=== PATIENT | female | born 1985 | race Caucasian/White ===

== ENCOUNTER 2019-10-17 12:51 | Inpatient (IN) | payer OTHER ==
[~2019-10-17] VITALS: Ht 175.3 cm; Wt 81.0 kg
--- NOTE | 2019-10-17 13:30 | NUR ---
[facility] Orientated patient to room and call light. Patient A&Ox4, reporting nausea and pain in abdomen. VLAD Scott notified. IV CDI. VSS. Assessment charted. No further needs expressed from patient. Call light within reach
[2019-10-17] MEDS ORDERED: CITANEST PLAIN1.8 ML (15:14)
[2019-10-17] MEDS ORDERED: PROMETHAZINE12.5 M5 PO (15:15)
[2019-10-17 15:44] VITALS: BP 142/77; PULSE 80; TEMP 97.9
[2019-10-17 15:51] VITALS: BP 130/64; PULSE 100; TEMP 99.3
[2019-10-17] MEDS ORDERED: ADDERALL XR30 MG PO (16:09)
[2019-10-17] MEDS ORDERED: PRILOSEC10 MG PO (16:11)
[2019-10-17 17:15] LABS: BASO # 0.1 (0.0-0.2); BASO % 0.5 % (0.0-2.0); GRAN # 14.7 (1.4-6.5); GRAN % 87.6 % (42.2-75.2); HEMOGLOBIN 11.5 g/dl (12.5-16.0); LYMPH # 1.3 (1.2-3.4); LYMPH % 7.5 % (20.0-51.0); MEAN CELL VOLUME 88 fl (80.0-100.0); MEAN CORPUSCULAR HEMOGLOBIN 29 pg (27.0-31.0); MEAN CORPUSCULAR HGB CONC 33 g/dl (33.0-37.0); MEAN PLATELET VOLUME 10.7 fl (7.4-10.4); MONO # 0.6 (0.1-0.6); MONO % 3.7 % (1.7-9.3); PLATELET COUNT 408 K/mm3 (130-400); REDCELL DISTRIBUTION WIDTH-CV 12.7 % (11.5-14.5)
[2019-10-17 17:28] LABS: ALANINE AMINOTRANSFERASE 10 U/L (9-52); ALBUMIN 3.1 gm/dL (3.5-5.0); ALKALINE PHOSPHATASE 94 U/L (50-136); ANION GAP 14 mmol/L (7-16); AST,SGOT 20 U/L (15-37); BILIRUBIN,TOTAL 0.6 mg/dL (0.0-1.0); CALCIUM 7.9 mg/dL (8.4-10.2); CARBON DIOXIDE 16 mmol/L (22-30); CHLORIDE 105 mmol/L (98-107); CREATININE, serum 0.64 (0.52-1.25); GLUCOSE 63 mg/dL (74-106); POTASSIUM 3.7 mmol/L (3.4-5.0); SODIUM 135 mmol/L (137-145); TOTAL PROTEIN 6.5 gm/dL (6.4-8.2)
[2019-10-17 17:30] LABS: BLOOD UREA NITROGEN < 2 mg/dL (7-17)
--- NOTE | 2019-10-17 18:17 | NUR ---
Patient resting in bed. VSS. IV CDI, fluids infusing. Denies pain and not reporting nausea. Patient stating that she just wants to rest. No further needs expressed from patient. Call light within reach
[2019-10-18] VITALS (7 sets, daily range): BP systolic 123–132; BP diastolic 64–80; PULSE 52–86; TEMP 97.6–98.7
--- NOTE | 2019-10-18 02:02 | NUR ---
Patient has rested well throughout the night. Patient complained of pain, and was noted to have quickened breathing and small amount of moaning during painful episode. Patient also requested phenergan d/t nausea. PRN Dilaudid and Phenergan given and this was effective. Patient has been resting since then. Denies any further needs. Will continue to monitor.
--- NOTE | 2019-10-18 09:33 | NUR ---
First visit from the fishing floats assembler. No needs right now.
[2019-10-18 09:42] LABS: HEMOGLOBIN 10.4 g/dl (12.5-16.0); MEAN CELL VOLUME 88 fl (80.0-100.0); MEAN CORPUSCULAR HEMOGLOBIN 29 pg (27.0-31.0); MEAN CORPUSCULAR HGB CONC 33 g/dl (33.0-37.0); MEAN PLATELET VOLUME 10.5 fl (7.4-10.4); PLATELET COUNT 375 K/mm3 (130-400); RED BLOOD COUNT 3.61 M/mm3 (4.10-5.30); REDCELL DISTRIBUTION WIDTH-CV 12.7 % (11.5-14.5)
[2019-10-18 09:43] LABS: HEMATOCRIT 31.8 % (37.0-47.0)
--- NOTE | 2019-10-18 09:50 | NUR ---
machine welder met with pt to discuss discharge planning. Pt lives in [place] with her , 2 step-children, and their 5mo child. Pt's parents are also staying with them for a couple of months while their new home is built. Pt reports that her will be deploying soon so they will be staying with her for part of that. Pt does not use any DME at home and is independent in her ADLs. Pt's PCM is Dr. Trujillo from [facility]. Gets her prescriptions at the [facility]. Pt does not have an Advanced Directive at this time but was interested in reviewing the paperwork. Pt plans to return home with family at discharge. She denies any current quesitons or concerns. SW to follow for continued discharge planning.
[2019-10-18 09:55] LABS: CALCIUM 7.6 mg/dL (8.4-10.2); CREATININE, serum 0.6 (0.52-1.25); POTASSIUM 4.1 mmol/L (3.4-5.0)
[2019-10-18 10:24] LABS: BAND 37 % (0-10); LYMPHOCYTE 10 % (20.0-51.0); METAMYELOCYTE 1 % (0-0); MYELOCYTE 1 % (0-0); NEUTROPHILS 51 % (42.0-75.2); PLATELET ESTIMATE NORMAL (NORMAL)
--- NOTE | 2019-10-18 11:30 | NUR ---
Patient stated everytime she has bowel movement that her pain jumps up and her nausea comes back. She is tolerating clear liquids well. She has been sleeping most the morning. No other changes at this time. Call light within reach.
--- NOTE | 2019-10-18 19:00 | NUR ---
Patient has been getting dilauded every two hours or so. She got norco once but stated it is not working well enough. Nausea has been better this evening. GI was here to see her. Patient wanted to go back to a clear liquid diet, she stated the bland diet is causing her pain to increase. No other changes at this time. Call light within reach.
[2019-10-19] VITALS (8 sets, daily range): BP systolic 119–150; BP diastolic 69–87; PULSE 68–108; TEMP 97.8–98.3
--- NOTE | 2019-10-19 02:43 | NUR ---
Upon arrival to shift, patient states she has had minimal pain relief ever since she attempted to eat a bland diet. After PRN dilaudid was unsuccessful, PRN Morphine was attempted and this was unsuccessful as well. Dr. Quevedo notified and ordered 10mg Bentyl IM x1 dose. This was administered and patient called and stated this wasn't effective. PRN Dilaudid administered. Patient requested something to help her sleep. Dr. Quevedo notified and ordered 15mg Remeron PO once. Patient was able to get a few hours of sleep, then called and asked for more pain medication. She stated she was woke up by the urge to have a bowel movement. Stated she has a loose stool with some blood in it. Patient is resting at this time. Will continue to monitor and attempt pain relief.
[2019-10-19 07:00] LABS: MEAN CELL VOLUME 89 fl (80.0-100.0); MEAN CORPUSCULAR HGB CONC 32 g/dl (33.0-37.0); MEAN PLATELET VOLUME 10.8 fl (7.4-10.4); PLATELET COUNT 301 K/mm3 (130-400); RED BLOOD COUNT 3.06 M/mm3 (4.10-5.30); REDCELL DISTRIBUTION WIDTH-CV 13.1 % (11.5-14.5)
[2019-10-19 07:04] LABS: CREATININE, serum 0.53 (0.52-1.25); POTASSIUM 4.1 mmol/L (3.4-5.0)
[2019-10-19 07:06] LABS: HEMATOCRIT 27.1 % (37.0-47.0); HEMOGLOBIN 8.7 g/dl (12.5-16.0); MEAN CORPUSCULAR HEMOGLOBIN 28 pg (27.0-31.0)
[2019-10-19 08:20] LABS: BAND 45 % (0-10); LYMPHOCYTE 9 % (20.0-51.0); NEUTROPHILS 38 % (42.0-75.2); PLATELET ESTIMATE NORMAL (NORMAL)
[2019-10-19 08:22] LABS: OVALOCYTES 2+; SCHISTOCYTES 2+
--- NOTE | 2019-10-19 12:30 | NUR ---
Patient is not feeling well today. Her pain and nausea has been worse today. She stated the pain is making it worse. Dr Lee came to see patient, he ordered remicade to be given inpatient tomorrow. Patient has never had this medication but stated she is aware how it works. No other changes at this time. Call light within reach.
--- NOTE | 2019-10-19 18:00 | NUR ---
Patient has been on the dilauded BROILER CHEF OR COOK since about 1529. she is doing better with it. Her pain is well controlled. She continues to have nausea. No other changes at this time. Call light within reach.
[2019-10-20] VITALS (11 sets, daily range): BP systolic 116–134; BP diastolic 63–78; PULSE 61–82; TEMP 97.5–98.5
--- NOTE | 2019-10-20 01:26 | NUR ---
patient doing well tonight. states pain is well controlled with TUBE DISPATCHER dilaudid. pain and nausea increases after bowel movements per patient. has taken prn phernergan twice for nausea. tolerating her clear liquid diet per patient. no further needs at this time. will continue to monitor.
[2019-10-20 07:13] LABS: BASO % 0.2 % (0.0-2.0); GRAN # 7.6 (1.4-6.5); GRAN % 71.1 % (42.2-75.2); LYMPH # 1.6 (1.2-3.4); MEAN CELL VOLUME 88 fl (80.0-100.0); MEAN CORPUSCULAR HGB CONC 33 g/dl (33.0-37.0); MEAN PLATELET VOLUME 11.1 fl (7.4-10.4); MONO # 1.2 (0.1-0.6); MONO % 11.1 % (1.7-9.3); PLATELET COUNT 272 K/mm3 (130-400); RED BLOOD COUNT 3.06 M/mm3 (4.10-5.30); REDCELL DISTRIBUTION WIDTH-CV 13.4 % (11.5-14.5)
[2019-10-20 07:15] LABS: C-REACTIVE PROTEIN 1.9 mg/dL (0.0-0.9); CALCIUM 7.4 mg/dL (8.4-10.2); CREATININE, serum 0.58 (0.52-1.25); POTASSIUM 3.8 mmol/L (3.4-5.0)
[2019-10-20 07:18] LABS: HEMOGLOBIN 8.8 g/dl (12.5-16.0); MEAN CORPUSCULAR HEMOGLOBIN 29 pg (27.0-31.0)
--- NOTE | 2019-10-20 08:00 | NUR ---
Patient in bed resting. Alert and oriented x 3. Assessment complete. ENDOSCOPY TECHNICAN infusing per orders to SUGAR PICC. PICC flushes without difficulty on both ports. Denies further needs at this time.
--- NOTE | 2019-10-20 10:00 | NUR ---
Patient requests phenergan, states it helps with stomach discomfort. Medication given per orders. Denies further needs at this time.
--- NOTE | 2019-10-20 13:09 | NUR ---
Patient requests benadryl for itching, given per orders.
--- NOTE | 2019-10-20 15:00 | NUR ---
Patient states benadryl has not helped with itching. Contacted Dr. Zendejas, one time order for benadryl given. Will continue to monitor.
--- NOTE | 2019-10-20 18:30 | NUR ---
Patient has done well throughout the day. States she is trying to decrease use of SCHOOL SOCIAL WORKER today. Has requested phenergan for nausea throughout the day, medication given per orders. Showered this afternoon, linens changed. Denies further needs at this time. Will report off to shift production supervisor.
--- NOTE | 2019-10-20 21:32 | NUR ---
patient doing well tonight. had episode of increased pain rated 9/10 when WEB MARKETING MANAGER had finished. WEB MARKETING MANAGER refilled. patient states there is no other needs. denies nausea at this time. complaints of increased itching. patient requested benadryl be switched to IV, Dr. whiteside called, started on 12.5 mg IV benadryl q 4 hrs prn per doctors orders. no further needs at this time. will continue to monitor.
[2019-10-21] VITALS (9 sets, daily range): BP systolic 124–149; BP diastolic 73–95; PULSE 68–92; TEMP 97.6–99
[2019-10-21 06:21] LABS: MEAN CELL VOLUME 91 fl (80.0-100.0); MEAN CORPUSCULAR HGB CONC 32 g/dl (33.0-37.0); MEAN PLATELET VOLUME 10.7 fl (7.4-10.4); PLATELET COUNT 208 K/mm3 (130-400); RED BLOOD COUNT 2.89 M/mm3 (4.10-5.30); REDCELL DISTRIBUTION WIDTH-CV 13.5 % (11.5-14.5)
[2019-10-21 06:33] LABS: HEMATOCRIT 26.2 % (37.0-47.0); HEMOGLOBIN 8.4 g/dl (12.5-16.0); MEAN CORPUSCULAR HEMOGLOBIN 29 pg (27.0-31.0)
[2019-10-21 06:36] LABS: C-REACTIVE PROTEIN 1.6 mg/dL (0.0-0.9); CALCIUM 6.8 mg/dL (8.4-10.2); CREATININE, serum 0.49 (0.52-1.25); POTASSIUM 3.4 mmol/L (3.4-5.0)
[2019-10-21 07:04] LABS: BAND 25 % (0-10); EOSINOPHIL 1 % (0-4); LYMPHOCYTE 30 % (20.0-51.0); METAMYELOCYTE 3 % (0-0); NEUTROPHILS 34 % (42.0-75.2); NUCLEATED RED BLOOD CELL 1 (0-6)
[2019-10-21 07:05] LABS: PLATELET ESTIMATE NORMAL (NORMAL)
[2019-10-21 13:22] LABS: HEPATITIS B CORE AB,TOTAL Negative (()); HEPATITIS B SURFACE ANTIBODY 25.2 (()); HEPATITIS B SURFACE ANTIGEN Negative (Negative); HEPATITIS C VIRUS ANTIBODY Negative (Negative)
--- NOTE | 2019-10-21 18:00 | NUR ---
Patient has been doing well today. Her PUBLIC SERVICES LIBRARIAN has been discontinued, she is getting IV dilauded q2 hours PRN. She does call every time it is due. She continues to have the itching and nausea as well. Benadryl and phenergan given for that. Her family has been by to visit her. Her mother brought her food and it was placed in the fridge. They brought her food since she is not able to order the food she wants from the kitchen and most of the food upsets her stomach or causes her pain. No other changes at this time. Call light within reach
--- NOTE | 2019-10-22 01:27 | NUR ---
PATIENT DOING WELL TONIGHT. HAS BEEN TAKING DILAUDID FOR PAIN Q 2 HOURS. STATES THIS IS NOT CONTROLLING HER PAIN BETTER THAN THE CORPORATE LIBRARIAN. HAS HAD SEVERAL BLOODY BOWEL MOVEMENTS THROUGHOUT THE NIGHT. IV BENADRYL GIVEN Q4 HOURS FOR ITCHING. IV PHENERGAN GIVEN Q4 HOURS FOR NAUSEA. PATIENT HAS SLEPT SOME THROUGHOUT NIGHT. PICC TO [facility] HAS GOOD BLOOD RETURN. NO FURTHER NEEDS AT THIS TIME. WILL CONTINUE TO MONITOR.
[2019-10-22 04:40] VITALS: BP 146/91; PULSE 67; TEMP 98.6
[2019-10-22 06:28] LABS: MEAN CELL VOLUME 90 fl (80.0-100.0); MEAN CORPUSCULAR HGB CONC 32 g/dl (33.0-37.0); MEAN PLATELET VOLUME 10.8 fl (7.4-10.4); PLATELET COUNT 243 K/mm3 (130-400); REDCELL DISTRIBUTION WIDTH-CV 13.3 % (11.5-14.5)
[2019-10-22 06:29] LABS: HEMATOCRIT 26.9 % (37.0-47.0); HEMOGLOBIN 8.7 g/dl (12.5-16.0); MEAN CORPUSCULAR HEMOGLOBIN 29 pg (27.0-31.0)
[2019-10-22 06:31] LABS: ALBUMIN 2.3 gm/dL (3.5-5.0); BILIRUBIN,TOTAL 0.1 mg/dL (0.0-1.0); C-REACTIVE PROTEIN 1.1 mg/dL (0.0-0.9); CALCIUM 6.6 mg/dL (8.4-10.2); CREATININE, serum 0.55 (0.52-1.25); TOTAL PROTEIN 4.8 gm/dL (6.4-8.2)
[2019-10-22 07:30] LABS: BAND 10 % (0-10); EOSINOPHIL 5 % (0-4); LYMPHOCYTE 33 % (20.0-51.0); METAMYELOCYTE 1 % (0-0); MYELOCYTE 2 % (0-0); NEUTROPHILS 45 % (42.0-75.2); PLATELET ESTIMATE NORMAL (NORMAL)
--- NOTE | 2019-10-22 07:52 | NUR ---
Patient continues to have a lot pain with bowel movements. Checked her stools this morning, she had a small red liquid stool. She continues to rate her pain at 8-10 on a 0-10 scale. Denies nausea at this time. We are trying to switch her to oral pain medications, roxicodone given for pain this morning. No other changes at this time. Call light within reach.
[2019-10-22 08:16] VITALS: BP 131/68; PULSE 72; TEMP 98.3
[2019-10-22 11:16] VITALS: BP 141/82; PULSE 82; TEMP 99
[2019-10-22 15:37] VITALS: BP 139/83; PULSE 85; TEMP 99
--- NOTE | 2019-10-22 18:24 | NUR ---
Patient was a little better today. It got worse this afternoon. She is getting started on oral pain and oral nausea medication. She showered this afternoon. Her family was here for most the day. She is hoping to discharge tomorrow. She has been walking several times in the hallways. No other changes at this time. Call light within reach.
[2019-10-22 19:32] VITALS: BP 156/90; PULSE 89; TEMP 98.2
--- NOTE | 2019-10-22 23:32 | NUR ---
PATIENT DOING OK TONIGHT. HAS BEEN STRUGGLING WITH PAIN TO THE POINT OF TEARS. PRN DILAUDID GIVEN Q2 HOURS ALONG WITH MOHSEN Q4. PATIENT STATES SHE HAD X2 EMESIS EARLIER AND PRN PHENERGAN GIVEN. STATES SHE IS STILL HAVING BLOODY STOOLS BUT LESS THAN EARLIER. WILL CONTINUE TO MONITOR. NO FURTHER NEEDS AT THIS TIME.
[2019-10-22 23:59] VITALS: BP 148/94; PULSE 82; TEMP 98.3
[2019-10-23] VITALS (7 sets, daily range): BP systolic 139–152; BP diastolic 73–93; PULSE 72–104; TEMP 97.7–98.7
--- NOTE | 2019-10-23 01:05 | NUR ---
PATIENT STATES SHE HAS BEEN NAUSEOUS AND HAS HAD SOME EMESIS TONIGHT. REQUESTED THAT SHE USE THE BASIN AND SAVE IT SO THAT WE CAN LOOK AT IT. PO PHENERGAN TO BE GIVEN IN 30 MIN. WILL CONTINUE TO MONITOR.
--- NOTE | 2019-10-23 01:59 | NUR ---
PRN PHENERGAN GIVEN FOR NAUSEA.
[2019-10-23 02:04] LABS: HEPATITIS AB (HAV) IGG INDEX 8.15 Index (<=1.00)
[2019-10-23 07:08] LABS: MEAN CELL VOLUME 91 fl (80.0-100.0); MEAN CORPUSCULAR HGB CONC 32 g/dl (33.0-37.0); MEAN PLATELET VOLUME 10.8 fl (7.4-10.4); PLATELET COUNT 280 K/mm3 (130-400); RED BLOOD COUNT 3.06 M/mm3 (4.10-5.30); REDCELL DISTRIBUTION WIDTH-CV 13.6 % (11.5-14.5)
[2019-10-23 07:30] LABS: C-REACTIVE PROTEIN 0.8 mg/dL (0.0-0.9); CALCIUM 7.5 mg/dL (8.4-10.2); CREATININE, serum 0.58 (0.52-1.25); HEMATOCRIT 27.7 % (37.0-47.0); HEMOGLOBIN 8.9 g/dl (12.5-16.0); MEAN CORPUSCULAR HEMOGLOBIN 29 pg (27.0-31.0); POTASSIUM 3.5 mmol/L (3.4-5.0)
[2019-10-23 08:20] LABS: BAND 11 % (0-10); EOSINOPHIL 2 % (0-4); LYMPHOCYTE 32 % (20.0-51.0); METAMYELOCYTE 1 % (0-0); NEUTROPHILS 44 % (42.0-75.2); PLATELET ESTIMATE NORMAL (NORMAL); SCHISTOCYTES 1+
--- NOTE | 2019-10-23 08:24 | NUR ---
Pt doing ok. Alert and oriented wt VSS. Ambulatory in room and in halls by herself. States pain rating of 6, gave prn dilaudid. pain decreased to a 3. PRN phenergan given with potassium replacement. K+ of 3.5. 20meq given. redraw at 1100. Patient room tray delivered. No other concerns at this time. Call light within reach, will continue to monitor
--- NOTE | 2019-10-23 10:54 | NUR ---
Pt stated she ate some eggs for breakfast and tolerated well. Did not want to try anything else due to fear of n/v.
--- NOTE | 2019-10-23 15:01 | NUR ---
Pt reported to this nurse that she ate mashed potatoes for lunch. KNIT GOODS MENDER reported that patient ate pizza for lunch but pt did not want nurse to know. pt not c/o abdominal pain/cramping. Called for PRN pain medicine. This nurse went into room and patient was crying and rubbing her stomach saying she was in severe pain. PRN dilaudid given.
--- NOTE | 2019-10-23 15:02 | NUR ---
Pt has small BM of liquid george stool. No visible blood.
--- NOTE | 2019-10-23 15:19 | NUR ---
PRN BENADRYL GIVEN TO PATIENT PER REQUEST SHE STATES SHE IS ITCHING EVERYWHERE
--- NOTE | 2019-10-23 17:15 | NUR ---
Pt requested IV dilaudid. Informed pt that we would like to ease her off the IV pain medicine as i just gave her PRN oxycodone about 20min ago and it would take time to be effective.
--- NOTE | 2019-10-23 17:31 | NUR ---
Pt reports she has had multiple BM this afternoon. Nurse instructed patient to let us know when she has BM so we can look. She did not notify nurse
--- NOTE | 2019-10-23 20:00 | NUR ---
Report received. Assumed care for security shift supervisor. Assessment complete. VS stable. PICC to right upper arm flushes without difficulty-good blood return. LR@60ml/hr. Plan of care discussed for this shift. States she would like her pain medication whenever she could have it as well as her nausea med. States she hasnt felt well sicne eating. Denies needs. Instructed to call if has a BM. Verbalizes understanding. Call light in reach. Will monitor.
--- NOTE | 2019-10-24 01:15 | NUR ---
Called at 0040 for IV pain medication. Instructed it was to early but this nurse would bring it at 0115 when she could have it. To room at 0115-resting eyes closed-audible snore. Returned to [facility].
[2019-10-24 03:35] VITALS: BP 133/77; PULSE 63; TEMP 97.4
[2019-10-24 05:33] LABS: TB GOLD INTERPRETATION Negative (Negative)
[2019-10-24 06:26] LABS: MEAN CELL VOLUME 92 fl (80.0-100.0); MEAN CORPUSCULAR HGB CONC 31 g/dl (33.0-37.0); MEAN PLATELET VOLUME 10.5 fl (7.4-10.4); PLATELET COUNT 333 K/mm3 (130-400); RED BLOOD COUNT 3.43 M/mm3 (4.10-5.30)
[2019-10-24 06:27] LABS: HEMATOCRIT 31.4 % (37.0-47.0); HEMOGLOBIN 9.8 g/dl (12.5-16.0); MEAN CORPUSCULAR HEMOGLOBIN 29 pg (27.0-31.0)
[2019-10-24 06:36] LABS: CALCIUM 7.9 mg/dL (8.4-10.2); CREATININE, serum 0.64 (0.52-1.25); POTASSIUM 3.6 mmol/L (3.4-5.0)
[2019-10-24 07:15] VITALS: BP 145/91; PULSE 102; TEMP 98.3
--- NOTE | 2019-10-24 08:30 | NUR ---
Patient in bed resting. Alert and oriented x 3. Shift assessment complete. PICC line to SUGAR without complications. IV fluids infusing per orders. Denies pain at tis time. Denies further needs at this time. Patient independent in room. Assited patient to set up for shower.
[2019-10-24 09:54] LABS: BAND 15 % (0-10); EOSINOPHIL 1 % (0-4); LYMPHOCYTE 46 % (20.0-51.0); METAMYELOCYTE 2 % (0-0); NEUTROPHILS 27 % (42.0-75.2); PLATELET ESTIMATE NORMAL (NORMAL); SCHISTOCYTES 1+
[2019-10-24] MEDS ORDERED: PREDNISONE10 MG PO ×2 (10:59→11:40)
[2019-10-24] MEDS ORDERED: D3-5050000 IU PO (11:04)
[2019-10-24] MEDS ORDERED: OSCAL 500 TAB500 MG PO (11:05)
[2019-10-24] MEDS ORDERED: PROMETHAZINE12.5 M5 PO (11:08)
[2019-10-24] MEDS ORDERED: PERCOCET 325 MG1 TA3 PO (11:14)
[2019-10-24 11:33] VITALS: BP 143/86; PULSE 94; TEMP 97.8
--- NOTE | 2019-10-24 12:30 | NUR ---
Discharge education provided to patient. Educated on when to call provider. Patient will call primary office to schedule follow up. GI appointment scheduled for patient. Family at bedside. PICC line discontinued by PICC nurse. All questions answered. Educated on medications and medication safety. Denies further needs at this time. Patient out with family and surgical staff.
--- NOTE | 2019-10-24 13:49 | NUR ---
Account Information Clerk attended clinical rounds with team and patient to discharge home today.
== END 2019-10-24 12:30 | disposition home or self-care (01) | DRG 392 ==
LOC: SURG 12:51
PROVIDERS: Internal Medicine Gastroenterology; Nurse Practitioner Family; Physician Assistant; ADMIT Student in an Organized Health Care Education/Training Program
PROC: 0DJD8ZZ Inspection of Lower Intestinal Tract, Via Natural or Artificial Opening Endoscopic (ICD-10-PCS; 2019-10-17)
PROC: 02HV33Z Insertion of Infusion Device into Superior Vena Cava, Percutaneous Approach (ICD-10-PCS; 2019-10-18)
PROC: 02PYX3Z Removal of Infusion Device from Great Vessel, External Approach (ICD-10-PCS; principal; 2019-10-24)
DX: K58.0 Irritable bowel syndrome with diarrhea (principal); F98.8 Other specified behavioral and emotional disorders with onset usually occurring in childhood and adolescence; K21.9 Gastro-esophageal reflux disease without esophagitis; F41.9 Anxiety disorder, unspecified; F32.9 Major depressive disorder, single episode, unspecified; D50.9 Iron deficiency anemia, unspecified; E55.9 Vitamin D deficiency, unspecified; D72.828 Other elevated white blood cell count; T38.0X5A Adverse effect of glucocorticoids and synthetic analogues, initial encounter; E87.6 Hypokalemia; E83.51 Hypocalcemia; Z88.8 Allergy status to other drugs, medicaments and biological substances; Z88.5 Allergy status to narcotic agent
CPT/HCPCS: 99222-AI; 99231-AI; 99232-AI; 99239; C1751; C9113; J0500; J1170; J1200; J1650; J2270; J2550; J2920; J2930; J7030; J7050; J7120; J7512; Q5103

== ENCOUNTER 2019-11-15 12:59 | Outpatient (RCR) | payer OTHER ==
[~2019-11-15] VITALS: Ht 175.3 cm; Wt 85.0 kg
[~2019-11-15 12:59] MED LIST: ADDERALL XR30 MG PO; CITANEST PLAIN1.8 ML; D3-5050000 IU PO; OSCAL 500 TAB500 MG PO; PERCOCET 325 MG1 TA3 PO; PREDNISONE10 MG PO; PRILOSEC10 MG PO; PROMETHAZINE12.5 M5 PO
[2019-11-15 13:31] LABS: HEMOGLOBIN 10.9 g/dl (12.5-16.0); MEAN CELL VOLUME 89 fl (80.0-100.0); MEAN CORPUSCULAR HEMOGLOBIN 28 pg (27.0-31.0); MEAN CORPUSCULAR HGB CONC 31 g/dl (33.0-37.0); PLATELET COUNT 352 K/mm3 (130-400); RED BLOOD COUNT 3.95 M/mm3 (4.10-5.30); REDCELL DISTRIBUTION WIDTH-CV 14.2 % (11.5-14.5)
[2019-11-15] MEDS ORDERED: ZYRTEC 10MG10 MG PO (13:33)
[2019-11-15] MEDS ORDERED: MIRENA52 MG IY (13:35)
[2019-11-15] MEDS ORDERED: PREDNISONE20 MG PO (13:36)
[2019-11-15] MEDS ORDERED: D3-5050000 IU PO (13:36)
[2019-11-15] MEDS ORDERED: CEPHALEXIN500 M1 PO (13:37)
[2019-11-15] MEDS ORDERED: PHENERGAN 25 TA25 MG PO (13:38)
[2019-11-15] MEDS ORDERED: PERCOCET 325 MG1 TA2 PO (13:39)
[2019-11-15 13:43] LABS: ALANINE AMINOTRANSFERASE < 6 U/L (9-52); ALBUMIN 4.4 gm/dL (3.5-5.0); ALKALINE PHOSPHATASE 78 U/L (50-136); ANION GAP 11 mmol/L (7-16); AST,SGOT 13 U/L (15-37); BILIRUBIN,TOTAL 0.3 mg/dL (0.0-1.0); BLOOD UREA NITROGEN 10 mg/dL (7-17); CARBON DIOXIDE 29 mmol/L (22-30); CHLORIDE 102 mmol/L (98-107); CREATININE, serum 0.69 (0.52-1.25); GLUCOSE 134 mg/dL (74-106); POTASSIUM 3.4 mmol/L (3.4-5.0); SODIUM 142 mmol/L (137-145); TOTAL PROTEIN 7.9 gm/dL (6.4-8.2)
--- NOTE | 2019-11-15 14:30 | NUR ---
Pt had 1 dose Inflectra in hospital last month. Dr. Grossman is restarting loading dose today.
[2019-11-15 14:45] VITALS: BP 138/87; PULSE 80; TEMP 98
[2019-11-15 15:15] VITALS: BP 133/78; PULSE 78; TEMP 98.5
[2019-11-15 15:45] VITALS: BP 136/86; PULSE 77; TEMP 98.3
[2019-11-15 16:15] VITALS: BP 123/87; PULSE 88; TEMP 98.5
[2019-11-15 16:46] VITALS: BP 139/80; PULSE 81; TEMP 98.8
--- NOTE | 2019-11-15 16:50 | NUR ---
Pt teresa Inflectra well. Pt discharged per ambulation.
== END 2019-11-15 16:51 | disposition home or self-care (01) ==
LOC: EUO 12:59
PROVIDERS: Internal Medicine Gastroenterology
DX: K51.90 Ulcerative colitis, unspecified, without complications (principal); Z79.899 Other long term (current) drug therapy
CPT/HCPCS: J1200; J7050; Q5103

== ENCOUNTER 2019-11-30 14:57 | Outpatient (CLI) | payer OTHER ==
[~2019-11-30] VITALS: Ht 175.3 cm; Wt 85.2 kg
[~2019-11-30 14:57] MED LIST changes: +CEPHALEXIN500 M1 PO; +MIRENA52 MG IY; +PERCOCET 325 MG1 TA2 PO; +PHENERGAN 25 TA25 MG PO; +PREDNISONE20 MG PO; +ZYRTEC 10MG10 MG PO
[2019-11-30 15:43] LABS: MEAN CELL VOLUME 86 fl (80.0-100.0); MEAN CORPUSCULAR HEMOGLOBIN 27 pg (27.0-31.0); MEAN CORPUSCULAR HGB CONC 31 g/dl (33.0-37.0); MEAN PLATELET VOLUME 11.1 fl (7.4-10.4); PLATELET COUNT 359 K/mm3 (130-400); RED BLOOD COUNT 3.76 M/mm3 (4.10-5.30); REDCELL DISTRIBUTION WIDTH-CV 15.2 % (11.5-14.5)
[2019-11-30 15:47] LABS: HEMATOCRIT 32.3 % (37.0-47.0)
[2019-11-30 16:09] LABS: ALBUMIN 4.2 gm/dL (3.5-5.0); BILIRUBIN,TOTAL 0.2 mg/dL (0.0-1.0); CALCIUM 8.6 mg/dL (8.4-10.2); CREATININE, serum 0.66 (0.52-1.25); POTASSIUM 3.6 mmol/L (3.4-5.0); TOTAL PROTEIN 7.3 gm/dL (6.4-8.2)
[2019-11-30 17:00] VITALS: BP 143/79; PULSE 78; TEMP 98.6
[2019-11-30 17:30] VITALS: BP 138/75; PULSE 81
[2019-11-30 18:00] VITALS: BP 145/76; PULSE 84; TEMP 98.5
[2019-11-30 18:30] VITALS: BP 150/78; PULSE 87; TEMP 98.5
--- NOTE | 2019-11-30 18:53 | NUR ---
SPOKE WITH YOVANNY IN LAB. INFORMED HIM THAT I ENTERED THE WRONG [facility] ORDER IN AND NEED IT CANCELLED. WRONG MANPOWER DEVELOPMENT ADVISOR. PT ONLY NEEDED AN HCG URINALYSIS. YOVANNY AWARE AND WILL WORK ON GETTING THIS CANCELLED SO THE PT IS NOT CHARGED.
[2019-11-30 19:13] VITALS: BP 148/75; PULSE 88; TEMP 98.6
--- NOTE | 2019-11-30 19:21 | NUR ---
ENCOURAGED PT TO SPEAK WITH DR. FIGUEROA ABOUT THE OPTION OF NOT TAKING THE PREMEDICATION PRIOR TO HER INFLECTRA INFUSION. ALSO, PT MADE AWARE THAT IF THEY DO AGREE TO NOT TAKE HER PREMEDICATION IN THE FUTURE WELL, WE WILL NEED THEM TO FAX A NEW ORDER. PT AWARE AND WILL DISCUSS WITH DR. FIGUEROA.
== END 2019-11-30 19:23 | disposition home or self-care (01) ==
LOC: EUO 14:57
PROVIDERS: Internal Medicine Gastroenterology
DX: K50.90 Crohn's disease, unspecified, without complications (principal); Z79.899 Other long term (current) drug therapy
CPT/HCPCS: J7050; Q5103

== ENCOUNTER 2019-12-28 15:24 | Outpatient (CLI) | payer OTHER ==
[~2019-12-28] VITALS: Ht 175.3 cm; Wt 87.4 kg
[~2019-12-28 15:24] MED LIST changes: +PREDNISONE 5MG5 MG PO; -PREDNISONE20 MG PO
[2019-12-28 16:01] LABS: HEMOGLOBIN 10.7 g/dl (12.5-16.0); MEAN CELL VOLUME 82 fl (80.0-100.0); MEAN CORPUSCULAR HEMOGLOBIN 26 pg (27.0-31.0); MEAN CORPUSCULAR HGB CONC 31 g/dl (33.0-37.0); PLATELET COUNT 324 K/mm3 (130-400); REDCELL DISTRIBUTION WIDTH-CV 15.1 % (11.5-14.5)
[2019-12-28 16:03] LABS: HEMATOCRIT 34.4 % (37.0-47.0)
[2019-12-28 16:18] LABS: ALBUMIN 4.4 gm/dL (3.5-5.0); BILIRUBIN,TOTAL 0.4 mg/dL (0.0-1.0); CREATININE, serum 0.7 (0.52-1.25); POTASSIUM 3.5 mmol/L (3.4-5.0); TOTAL PROTEIN 7.3 gm/dL (6.4-8.2)
[2019-12-28 17:00] VITALS: BP 134/85; PULSE 81; TEMP 97.9
[2019-12-28 17:30] VITALS: BP 132/85; PULSE 76
[2019-12-28 18:00] VITALS: BP 129/96; PULSE 82
[2019-12-28 18:32] VITALS: BP 132/85; PULSE 78; TEMP 98.9
[2019-12-28 19:00] VITALS: BP 140/71; PULSE 99; TEMP 98.6
--- NOTE | 2019-12-28 19:00 | NUR ---
PT has done well during inflectra infusion, she did develop a dime sized hive about 2inches proximal to her IV site on left arm after iv was flushed. it was not itchy, and pt did not have any discomfort, or any other sign of allergic reaction. we watched her for several minutes without any progression of any symptom, and pt felt comfortable monitoring herself, reported she did have benadryl at home if needed, and noted she was not alone at home.
== END 2019-12-28 19:50 | disposition home or self-care (01) ==
LOC: EUO 15:24
PROVIDERS: Internal Medicine Gastroenterology
DX: K50.90 Crohn's disease, unspecified, without complications (principal); Z79.899 Other long term (current) drug therapy
CPT/HCPCS: J7050; Q5103

== ENCOUNTER → 2020-07-08 | Outpatient (CLI) | payer OTHER ==
[~2020-07-08] MED LIST changes: +IMURAN 50MG TAB50 MG PO
== END ==
LOC: MHCPAIN 09:23
DX: M47.817 Spondylosis without myelopathy or radiculopathy, lumbosacral region (principal); M54.5 Low back pain; M53.3 Sacrococcygeal disorders, not elsewhere classified; G89.29 Other chronic pain
CPT/HCPCS: G0463

== ENCOUNTER → 2020-07-14 | Outpatient (CLI) | payer OTHER | LOC: MHCPAIN 12:57 | DX: M47.817 Spondylosis without myelopathy or radiculopathy, lumbosacral region (principal); M54.5 Low back pain | CPT/HCPCS: J2250; J3010 ==

== ENCOUNTER → 2020-07-17 | Outpatient (CLI) | payer OTHER | LOC: MHCPAIN 08:39 | DX: M47.817 Spondylosis without myelopathy or radiculopathy, lumbosacral region (principal); M54.5 Low back pain | CPT/HCPCS: J1040; J2250; J3010 ==

== ENCOUNTER → 2020-08-12 | Outpatient (CLI) | payer OTHER | LOC: MHCPAIN 10:42 | DX: M47.817 Spondylosis without myelopathy or radiculopathy, lumbosacral region (principal); M53.3 Sacrococcygeal disorders, not elsewhere classified; G89.29 Other chronic pain; M54.16 Radiculopathy, lumbar region | CPT/HCPCS: G0463 ==

== ENCOUNTER → 2020-08-13 | Outpatient (CLI) | payer OTHER ==
[~2020-08-13] VITALS: Ht 175.3 cm; Wt 85.3 kg
[2020-08-13 13:58] LABS: HEMATOCRIT 33.3 % (37.0-47.0); HEMOGLOBIN 10.8 g/dl (12.5-16.0); MEAN CELL VOLUME 86 fl (80.0-100.0); MEAN CORPUSCULAR HEMOGLOBIN 28 pg (27.0-31.0); MEAN CORPUSCULAR HGB CONC 32 g/dl (33.0-37.0); MEAN PLATELET VOLUME 11.5 fl (7.4-10.4); PLATELET COUNT 212 K/mm3 (130-400); RED BLOOD COUNT 3.87 M/mm3 (4.10-5.30); REDCELL DISTRIBUTION WIDTH-CV 15.1 % (11.5-14.5)
[2020-08-13 14:10] LABS: ALBUMIN 4.1 gm/dL (3.5-5.0); BILIRUBIN,TOTAL 0.3 mg/dL (0.0-1.0); CALCIUM 8.5 mg/dL (8.4-10.2); CREATININE, serum 0.69 (0.52-1.25); POTASSIUM 4.1 mmol/L (3.4-5.0); TOTAL PROTEIN 7.2 gm/dL (6.4-8.2)
[2020-08-13 14:30] VITALS: BP 132/85; PULSE 77; TEMP 98.2
[2020-08-13 15:00] VITALS: BP 138/79; PULSE 77; TEMP 98.2
[2020-08-13 15:30] VITALS: BP 127/80; PULSE 68; TEMP 98.2
[2020-08-13 16:00] VITALS: BP 134/83; PULSE 72; TEMP 98.2
[2020-08-13 16:30] VITALS: BP 134/85; PULSE 75; TEMP 98.2
== END ==
LOC: EUO 13:00
PROVIDERS: Internal Medicine Gastroenterology
DX: K51.90 Ulcerative colitis, unspecified, without complications (principal); Z79.899 Other long term (current) drug therapy
CPT/HCPCS: J1200; J2930; J7050; Q5103

== ENCOUNTER → 2020-08-28 | Outpatient (CLI) | payer OTHER | LOC: MHCPAIN 14:53 | DX: M47.817 Spondylosis without myelopathy or radiculopathy, lumbosacral region (principal); M54.16 Radiculopathy, lumbar region | CPT/HCPCS: J1100; Q9967 ==

== ENCOUNTER → 2020-09-17 | Outpatient (CLI) | payer OTHER | LOC: MHCPAIN 09:33 | DX: M47.817 Spondylosis without myelopathy or radiculopathy, lumbosacral region (principal); M54.5 Low back pain; M53.3 Sacrococcygeal disorders, not elsewhere classified; G89.29 Other chronic pain; M54.16 Radiculopathy, lumbar region | CPT/HCPCS: G0463 ==

== ENCOUNTER → 2020-09-17 | Outpatient (CLI) | payer OTHER | LOC: COL.RAD 10:04 | DX: M48.061 Spinal stenosis, lumbar region without neurogenic claudication (principal); M47.816 Spondylosis without myelopathy or radiculopathy, lumbar region ==

== ENCOUNTER 2020-09-24 12:52 | Outpatient (CLI) | payer OTHER ==
[~2020-09-24] VITALS: Ht 175.3 cm; Wt 87.2 kg
[2020-09-24] VITALS (7 sets, daily range): BP systolic 113–132; BP diastolic 60–79; PULSE 73–81; TEMP 98–99.4
[2020-09-24 13:33] LABS: HEMOGLOBIN 11.7 g/dl (12.5-16.0); MEAN CELL VOLUME 89 fl (80.0-100.0); MEAN CORPUSCULAR HEMOGLOBIN 29 pg (27.0-31.0); MEAN CORPUSCULAR HGB CONC 32 g/dl (33.0-37.0); MEAN PLATELET VOLUME 11.8 fl (7.4-10.4); PLATELET COUNT 314 K/mm3 (130-400); REDCELL DISTRIBUTION WIDTH-CV 13.4 % (11.5-14.5)
[2020-09-24 13:34] LABS: HEMATOCRIT 36.6 % (37.0-47.0)
[2020-09-24 13:54] LABS: ALBUMIN 4.3 gm/dL (3.5-5.0); BILIRUBIN,TOTAL 0.3 mg/dL (0.0-1.0); CALCIUM 8.7 mg/dL (8.4-10.2); CREATININE, serum 0.72 (0.52-1.25); POTASSIUM 3.6 mmol/L (3.4-5.0); TOTAL PROTEIN 7.5 gm/dL (6.4-8.2)
--- NOTE | 2020-09-24 17:30 | NUR ---
AFTER SECOND DOSE OF BENADRYL, PT'S ITCHING TO LEFT ARM RESOLVED. INFUSION WAS RESTARTED AT PREVIOUS RATE, AND PT REMAINED ASYMPTOMATIC FOR REMAINDER OF INFUSION. PT WAS ADVISED TO MONITOR HERSELF FOR ANY ALLERGIC REACTION SYMPTOMS, AND TO TAKE BENADRYL OTC FOR MILD SX, BUT GO TO ER FOR ANY LIFE THREATENING REACTION.
== END 2020-09-24 17:45 | disposition home or self-care (01) ==
LOC: EUO 12:52
PROVIDERS: Internal Medicine Gastroenterology
DX: K51.90 Ulcerative colitis, unspecified, without complications (principal); Z79.899 Other long term (current) drug therapy
CPT/HCPCS: J1200; J2930; J7050; Q5103

== ENCOUNTER 2020-11-25 13:03 | Outpatient (CLI) | payer OTHER ==
[~2020-11-25] VITALS: Ht 175.3 cm; Wt 88.1 kg
[2020-11-25 13:32] LABS: MEAN CELL VOLUME 89 fl (80.0-100.0); MEAN CORPUSCULAR HEMOGLOBIN 29 pg (27.0-31.0); MEAN CORPUSCULAR HGB CONC 33 g/dl (33.0-37.0); MEAN PLATELET VOLUME 11.9 fl (7.4-10.4); PLATELET COUNT 222 K/mm3 (130-400); RED BLOOD COUNT 4.14 M/mm3 (4.10-5.30)
[2020-11-25 13:33] LABS: HEMATOCRIT 36.8 % (37.0-47.0)
[2020-11-25] MEDS ORDERED: ZOLOFT 100MG100 MG PO (13:33)
[2020-11-25] MEDS ORDERED: INDERAL 20MG20 MG PO (13:34)
[2020-11-25 13:37] VITALS: BP 150/83; PULSE 71; TEMP 99.1
[2020-11-25 14:06] LABS: BILIRUBIN,TOTAL 0.4 mg/dL (0.0-1.0); CALCIUM 8.6 mg/dL (8.4-10.2); CREATININE, serum 0.77 (0.52-1.25); POTASSIUM 4.2 mmol/L (3.4-5.0); TOTAL PROTEIN 7.1 gm/dL (6.4-8.2)
[2020-11-25 14:30] VITALS: BP 129/74; PULSE 65
[2020-11-25 15:00] VITALS: BP 141/88; PULSE 68
[2020-11-25 15:30] VITALS: BP 125/69; PULSE 78
[2020-11-25 16:00] VITALS: BP 131/85; PULSE 70
--- NOTE | 2020-11-25 16:06 | NUR ---
PATIENT CONTINING INFLECTRA AT THIS TIME. VSS NO C/O ALLERGIC REACTION OBSERVED OR REPORTED. PATIENT REPORT GIVEN TO LANCE TO RESUME CARE. APPOINTMENT MADE FOR NEXT APPOINTMENT IN 8 WEEKS.
== END 2020-11-25 17:21 | disposition home or self-care (01) ==
LOC: EUO 13:03
PROVIDERS: Internal Medicine Gastroenterology
DX: K51.90 Ulcerative colitis, unspecified, without complications (principal); Z79.899 Other long term (current) drug therapy
CPT/HCPCS: J1200; J2930; J7050; Q5103

== ENCOUNTER → 2020-12-23 | Outpatient (CLI) | payer OTHER ==
[~2020-12-23] MED LIST changes: +INDERAL 20MG20 MG PO; +ZOLOFT 100MG100 MG PO
== END ==
LOC: MHCPAIN 13:47
DX: M47.816 Spondylosis without myelopathy or radiculopathy, lumbar region (principal); M54.5 Low back pain; M53.3 Sacrococcygeal disorders, not elsewhere classified; G89.29 Other chronic pain
CPT/HCPCS: G0463

== ENCOUNTER → 2020-12-29 | Outpatient (CLI) | payer OTHER | LOC: MHCPAIN 15:37 | DX: M47.818 Spondylosis without myelopathy or radiculopathy, sacral and sacrococcygeal region (principal); M53.3 Sacrococcygeal disorders, not elsewhere classified | CPT/HCPCS: G0260; J1040; Q9967 ==

== ENCOUNTER → 2021-01-19 | Outpatient (CLI) | payer OTHER | LOC: MHCPAIN 10:15 | DX: M47.816 Spondylosis without myelopathy or radiculopathy, lumbar region (principal); M54.5 Low back pain; M53.3 Sacrococcygeal disorders, not elsewhere classified | CPT/HCPCS: G0463 ==

== ENCOUNTER 2021-02-10 09:15 | Outpatient (RCR) | payer OTHER | END 2021-04-20 | disposition still patient (30) | LOC: WSC | DX: M48.062 Spinal stenosis, lumbar region with neurogenic claudication (principal); M51.36 Other intervertebral disc degeneration, lumbar region; M48.061 Spinal stenosis, lumbar region without neurogenic claudication; M25.551 Pain in right hip; M25.552 Pain in left hip ==

== ENCOUNTER 2021-02-10 13:00 | Outpatient (RCR) | payer OTHER ==
[2021-01-27 13:50] LABS: HEMATOCRIT 37.6 % (37.0-47.0); HEMOGLOBIN 12.3 g/dl (12.5-16.0); MEAN CELL VOLUME 91 fl (80.0-100.0); MEAN CORPUSCULAR HEMOGLOBIN 30 pg (27.0-31.0); MEAN CORPUSCULAR HGB CONC 33 g/dl (33.0-37.0); MEAN PLATELET VOLUME 11.9 fl (7.4-10.4); PLATELET COUNT 202 K/mm3 (130-400); RED BLOOD COUNT 4.14 M/mm3 (4.10-5.30); REDCELL DISTRIBUTION WIDTH-CV 13.1 % (11.5-14.5)
[2021-01-27 13:54] LABS: ALBUMIN 4.4 gm/dL (3.5-5.0); BILIRUBIN,TOTAL 0.5 mg/dL (0.0-1.0); CALCIUM 8.9 mg/dL (8.4-10.2); CREATININE, serum 0.71 (0.52-1.25); POTASSIUM 3.8 mmol/L (3.4-5.0); TOTAL PROTEIN 7.7 gm/dL (6.4-8.2)
[2021-01-27 14:29] VITALS: BP 141/78; PULSE 68; TEMP 98.2
[2021-01-27 14:45] VITALS: BP 139/77; PULSE 61
[2021-01-27 15:00] VITALS: BP 128/68; PULSE 73
[2021-01-27 15:15] VITALS: BP 128/74; PULSE 78; TEMP 98.2
[~2021-02-10] VITALS: Ht 175.3 cm; Wt 88.4 kg
[2021-02-10 13:15] LABS: HEMATOCRIT 37.3 % (37.0-47.0); HEMOGLOBIN 11.9 g/dl (12.5-16.0); MEAN CELL VOLUME 93 fl (80.0-100.0); MEAN CORPUSCULAR HEMOGLOBIN 30 pg (27.0-31.0); MEAN CORPUSCULAR HGB CONC 32 g/dl (33.0-37.0); MEAN PLATELET VOLUME 11.2 fl (7.4-10.4); PLATELET COUNT 236 K/mm3 (130-400); RED BLOOD COUNT 4.03 M/mm3 (4.10-5.30); REDCELL DISTRIBUTION WIDTH-CV 13.2 % (11.5-14.5)
[2021-02-10 13:22] LABS: ALBUMIN 4.3 gm/dL (3.5-5.0); BILIRUBIN,TOTAL 0.3 mg/dL (0.0-1.0); CALCIUM 8.6 mg/dL (8.4-10.2); CREATININE, serum 0.82 (0.52-1.25); POTASSIUM 3.7 mmol/L (3.4-5.0); TOTAL PROTEIN 7.5 gm/dL (6.4-8.2)
[2021-02-10 14:28] VITALS: BP 131/75; PULSE 82; TEMP 98.2
[2021-02-10 14:30] VITALS: BP 131/75; PULSE 78; TEMP 98.2
[2021-02-10 14:45] VITALS: BP 126/74; PULSE 76
[2021-02-10 15:00] VITALS: BP 132/80; PULSE 79
== END 2021-02-10 17:14 | disposition home or self-care (01) ==
LOC: EUO 13:00
PROVIDERS: Internal Medicine Gastroenterology
DX: K51.90 Ulcerative colitis, unspecified, without complications (principal); Z79.899 Other long term (current) drug therapy
CPT/HCPCS: J2930; J3380; J7050

== ENCOUNTER 2021-03-10 12:58 | Outpatient (CLI) | payer OTHER ==
[~2021-03-10] VITALS: Ht 175.3 cm; Wt 86.1 kg
[2021-03-10 13:19] LABS: BASO # 0.1 (0.0-0.2); BASO % 0.7 % (0.0-2.0); GRAN # 4.4 (1.4-6.5); GRAN % 61.6 % (42.2-75.2); HEMATOCRIT 38.5 % (37.0-47.0); HEMOGLOBIN 12.2 g/dl (12.5-16.0); LYMPH # 2.1 (1.2-3.4); LYMPH % 30.2 % (20.0-51.0); MEAN CELL VOLUME 91 fl (80.0-100.0); MEAN CORPUSCULAR HEMOGLOBIN 29 pg (27.0-31.0); MEAN CORPUSCULAR HGB CONC 32 g/dl (33.0-37.0); MONO # 0.5 (0.1-0.6); MONO % 7.2 % (1.7-9.3); PLATELET COUNT 280 K/mm3 (130-400); RED BLOOD COUNT 4.22 M/mm3 (4.10-5.30); REDCELL DISTRIBUTION WIDTH-CV 13.2 % (11.5-14.5)
[2021-03-10 13:30] LABS: ALBUMIN 4.2 gm/dL (3.5-5.0); BILIRUBIN,TOTAL 0.2 mg/dL (0.0-1.0); CALCIUM 8.6 mg/dL (8.4-10.2); CREATININE, serum 0.59 (0.52-1.25); POTASSIUM 3.4 mmol/L (3.4-5.0)
[2021-03-10 13:57] VITALS: BP 144/80; PULSE 84; TEMP 97.9
[2021-03-10 14:20] VITALS: BP 125/69; PULSE 72
[2021-03-10 14:30] VITALS: BP 134/73; PULSE 71
[2021-03-10 14:40] VITALS: BP 131/72; PULSE 72
== END 2021-03-10 15:02 | disposition home or self-care (01) ==
LOC: EUO 12:58
PROVIDERS: Internal Medicine Gastroenterology
DX: K51.90 Ulcerative colitis, unspecified, without complications (principal); Z79.899 Other long term (current) drug therapy
CPT/HCPCS: J3380; J7050

== ENCOUNTER 2021-05-05 12:50 | Outpatient (CLI) | payer OTHER ==
[~2021-05-05] VITALS: Ht 175.3 cm; Wt 87.6 kg
[2021-05-05 13:33] LABS: BASO % 0.5 % (0.0-2.0); GRAN # 4.7 (1.4-6.5); GRAN % 64.8 % (42.2-75.2); HEMOGLOBIN 11.7 g/dl (12.5-16.0); LYMPH # 1.9 (1.2-3.4); LYMPH % 26.6 % (20.0-51.0); MEAN CELL VOLUME 90 fl (80.0-100.0); MEAN CORPUSCULAR HEMOGLOBIN 29 pg (27.0-31.0); MEAN CORPUSCULAR HGB CONC 33 g/dl (33.0-37.0); MEAN PLATELET VOLUME 11.7 fl (7.4-10.4); MONO # 0.6 (0.1-0.6); PLATELET COUNT 245 K/mm3 (130-400); RED BLOOD COUNT 4.02 M/mm3 (4.10-5.30); REDCELL DISTRIBUTION WIDTH-CV 12.4 % (11.5-14.5)
[2021-05-05 13:44] LABS: ALBUMIN 4.1 gm/dL (3.5-5.0); BILIRUBIN,TOTAL 0.4 mg/dL (0.0-1.0); CALCIUM 8.9 mg/dL (8.4-10.2); CREATININE, serum 0.72 (0.52-1.25); POTASSIUM 3.7 mmol/L (3.4-5.0); TOTAL PROTEIN 7.4 gm/dL (6.4-8.2)
[2021-05-05 14:54] VITALS: BP 128/89; PULSE 81; TEMP 98.2
== END 2021-05-05 15:13 | disposition home or self-care (01) ==
LOC: EUO 12:50
PROVIDERS: Internal Medicine Gastroenterology
DX: K51.90 Ulcerative colitis, unspecified, without complications (principal)
CPT/HCPCS: J1200; J3380; J7050

== ENCOUNTER 2021-06-30 12:57 | Outpatient (CLI) | payer OTHER ==
[~2021-06-30] VITALS: Ht 175.3 cm; Wt 88.2 kg
[2021-06-30 13:23] LABS: HEMATOCRIT 40.8 % (37.0-47.0); HEMOGLOBIN 13.3 g/dl (12.5-16.0); MEAN CELL VOLUME 90 fl (80.0-100.0); MEAN CORPUSCULAR HEMOGLOBIN 29 pg (27.0-31.0); MEAN CORPUSCULAR HGB CONC 33 g/dl (33.0-37.0); MEAN PLATELET VOLUME 11.3 fl (7.4-10.4); PLATELET COUNT 254 K/mm3 (130-400); RED BLOOD COUNT 4.55 M/mm3 (4.10-5.30); REDCELL DISTRIBUTION WIDTH-CV 12.6 % (11.5-14.5)
[2021-06-30 13:33] LABS: ALBUMIN 4.4 gm/dL (3.5-5.0); BILIRUBIN,TOTAL 0.6 mg/dL (0.0-1.0); CALCIUM 8.8 mg/dL (8.4-10.2); CREATININE, serum 0.66 (0.52-1.25); POTASSIUM 3.8 mmol/L (3.4-5.0); TOTAL PROTEIN 7.6 gm/dL (6.4-8.2)
[2021-06-30 14:49] VITALS: BP 138/88; PULSE 84; TEMP 98.9
--- NOTE | 2021-06-30 15:22 | NUR ---
Pt reports itching of left arm,no rash observed.Pt denies shortness of breath,denies any other signs of reaction.This nurse called Dr Lee to report.OK to continue Entyvio.Visteril po ordered.Verbalizes instructions to pt.Pt agrees to continue infusion.
--- NOTE | 2021-06-30 16:17 | NUR ---
Pt agreed to stay for a little while after infusion.Per pt report ithing "got a better." INT removed,catheter tip intact.Pt discharged home via ambulatory.[facility] Dr Lee [facility].
== END 2021-06-30 16:18 ==
LOC: EUO 12:57
PROVIDERS: Internal Medicine Gastroenterology
DX: K51.90 Ulcerative colitis, unspecified, without complications (principal); Z79.899 Other long term (current) drug therapy
CPT/HCPCS: J1200; J3380; J7050

== ENCOUNTER 2021-08-25 13:15 | Outpatient (CLI) | payer OTHER ==
[~2021-08-25] VITALS: Ht 175.3 cm; Wt 91.0 kg
[2021-08-25 13:48] LABS: BASO % 0.4 % (0.0-2.0); GRAN # 4.2 (1.4-6.5); GRAN % 63.1 % (42.2-75.2); HEMOGLOBIN 11.2 g/dl (12.5-16.0); LYMPH # 1.8 (1.2-3.4); LYMPH % 27.5 % (20.0-51.0); MEAN CELL VOLUME 91 fl (80.0-100.0); MEAN CORPUSCULAR HEMOGLOBIN 30 pg (27.0-31.0); MEAN CORPUSCULAR HGB CONC 33 g/dl (33.0-37.0); MEAN PLATELET VOLUME 11.4 fl (7.4-10.4); MONO # 0.6 (0.1-0.6); MONO % 8.7 % (1.7-9.3); PLATELET COUNT 186 K/mm3 (130-400); RED BLOOD COUNT 3.79 M/mm3 (4.10-5.30); REDCELL DISTRIBUTION WIDTH-CV 12.4 % (11.5-14.5)
[2021-08-25 13:56] LABS: HEMATOCRIT 34.5 % (37.0-47.0)
[2021-08-25 14:07] LABS: ALBUMIN 3.8 gm/dL (3.5-5.0); BILIRUBIN,TOTAL 0.4 mg/dL (0.2-1.2); CALCIUM 8.7 mg/dL (8.4-10.2); CREATININE, serum 0.74 mg/dL (0.57-1.11); POTASSIUM 3.7 mmol/L (3.5-4.5); TOTAL PROTEIN 6.6 gm/dL (6.2-8.1)
[2021-08-25 15:16] VITALS: BP 142/81; PULSE 96; TEMP 97.6
== END 2021-08-25 15:15 | disposition home or self-care (01) ==
LOC: EUO 13:15
PROVIDERS: Internal Medicine Gastroenterology
DX: K51.90 Ulcerative colitis, unspecified, without complications (principal)
CPT/HCPCS: J3380; J7050

== ENCOUNTER 2021-10-20 13:23 | Outpatient (CLI) | payer OTHER ==
[2021-10-20 14:02] LABS: BASO % 0.6 % (0.0-2.0); GRAN % 62.5 % (42.2-75.2); HEMOGLOBIN 11.9 g/dl (12.5-16.0); LYMPH # 1.9 K/mm3 (1.2-3.4); LYMPH % 30.4 % (20.0-51.0); MEAN CELL VOLUME 88 fl (80.0-100.0); MEAN CORPUSCULAR HEMOGLOBIN 30 pg (27.0-31.0); MEAN CORPUSCULAR HGB CONC 34 g/dl (33.0-37.0); MEAN PLATELET VOLUME 11.2 fl (7.4-10.4); MONO # 0.4 K/mm3 (0.1-0.6); MONO % 6.3 % (1.7-9.3); PLATELET COUNT 215 K/mm3 (130-400); RED BLOOD COUNT 4.04 M/mm3 (4.10-5.30); REDCELL DISTRIBUTION WIDTH-CV 12.1 % (11.5-14.5)
[2021-10-20 14:04] LABS: HEMATOCRIT 35.5 % (37.0-47.0)
[2021-10-20 14:19] VITALS: BP 135/72; PULSE 83; TEMP 98.3
[2021-10-20 14:25] LABS: ALBUMIN 3.9 gm/dL (3.5-5.0); BILIRUBIN,TOTAL 0.3 mg/dL (0.2-1.2); CALCIUM 9.1 mg/dL (8.4-10.2); CREATININE, serum 0.79 mg/dL (0.57-1.11); POTASSIUM 3.2 mmol/L (3.5-4.5); TOTAL PROTEIN 6.9 gm/dL (6.2-8.1)
[2021-10-20 15:37] VITALS: BP 137/66; PULSE 67
== END 2021-10-20 16:32 | disposition home or self-care (01) ==
LOC: EUO 13:23
PROVIDERS: Internal Medicine Gastroenterology
DX: K51.919 Ulcerative colitis, unspecified with unspecified complications (principal)
CPT/HCPCS: J2930; J3380; J7050